=== PATIENT | male | born 1965 | race African-American/Black ===

== ENCOUNTER 2020-07-08 02:06 | Inpatient (IN) ==
[2020-07-08] MEDS ORDERED: FUROSEMIDE 40 MG/4 ML VIAL IV STA (02:23)
[2020-07-08] MEDS ORDERED: ONDANSETRON ODT 4 MG TABLET PO STA (02:23)
[2020-07-08] MEDS ORDERED: hydrALAZINE 20 MG/1 ML VIAL IV STA (02:23)
[2020-07-08] MEDS ORDERED: MORPHINE 4 MG/1 ML VIAL IV STA (02:23)
[2020-07-08] MEDS ORDERED: METHOCARBAMOL 1,000 MG/10 ML VIAL IV STA (02:23)
[2020-07-08] MEDS ORDERED: NITROGLYCERIN 2% OINT 1 INCH/GM PACK TOP STA (02:26)
[2020-07-08 03:01] LABS: Basophils % 0.2 % (0.0-0.8); Eosinophils # 0.2 10*3/uL (0.0-0.87); Hematocrit 39.7 VOL% (42.0-52.0); Hemoglobin 12.2 GM/DL (14.0-18.0); Immature Granulocytes % 0.2 %; Immature Granulocytes Absolute 0.01 #; Lymphocytes # 2.6 10*3/uL (1.4-4.0); Lymphocytes % 39.3 % (21.2-54.2); Mean Corpuscular HGB Conc 30.7 GM/DL (32-36); Mean Corpuscular Volume 92.5 FL (87-102); Mean Platelet Volume 11.6 FL (9.6-12.0); Monocytes % 7.4 % (1.7-12.7); Neutrophils % 49.9 % (38.7-73.9); Platelet Count 248 T/CUMM (130-400); Red Blood Count 4.29 MC/CUMM (3.8-5.5); Red Cell Distribution Width 14.2 % (9.3-17.3); White Blood Count 6.6 T/CUMM (4-12)
[2020-07-08 03:15] LABS: Alanine Aminotransferase 31 U/L (16-61); Albumin 3.9 G/DL (3.4-5.0); Alkaline Phosphatase 86 U/L (45-117); Aspartate Amino Transferase 48 U/L (0-37); Blood Urea Nitrogen 7 MG/DL (7-18); CKMB % 0.5 %; Calcium 8.9 MG/DL (8.5-10.1); Estimated Glom Filtration Rate 101 ML/MIN; Glucose 126 MG/DL (74-106); Osmolality,Calculated 272.8 MOS/KG (273-304); Total Protein 9.5 G/DL (6.4-8.3); Troponin I < 0.015 NG/ML (0.00-0.045)
[2020-07-08 03:19] LABS: Apearance,Urine Slightly Hazy (Clear); Bacteria,Urine Many /HPF (Few); Bilirubin,Urine Negative (Negative); Blood, Urine Small mg/dL (Negative); Glucose,Urine (UA) Negative (Negative); Ketones,Urine Negative (Negative); Mucus,Urine Occasional /LPF (Occasional); Nitrite,Urine Negative (Negative); Protein,Urine 30 MG/DL; RBC,Urine 9 /HPF (0-4); Renal Epithelial Cells,Urine Occasional /HPF (<1); Squamous Epithelial Cell,Urine Occasional /HPF (0-10); Urine Color Yellow (Yellow); Urine Specific Gravity 1.017 (1.001-1.035); WBC,Urine 61 /HPF (0-6)
[2020-07-08] MEDS ORDERED: LEVOFLOXACIN INJ 500 MG in PREMIX 1 EACH IV STA (03:22)
[2020-07-08] MEDS ORDERED: SODIUM CHLORIDE 0.9% 500 ML IV STA (03:22)
[2020-07-08 03:34] LABS: Barbiturates Screen,Urine Negative (Negative); Benzodiazepines Screen,Urine Negative (Negative); Cannabinoid Screen,Urine Negative (Negative); Opiate Screen,Urine Positive (Negative); Phencyclidine Screen,Urine Negative (Negative)
[2020-07-08 03:41] LABS: INR 2.4
[2020-07-08 03:43] LABS: PT Patient Result 24.6 SECS (9.8-11.9)
[2020-07-08] MEDS ORDERED: ACETAMINOPHEN 325 MG TABLET PO PRN (04:05)
[2020-07-08] MEDS ORDERED: ONDANSETRON 4 MG/2 ML VIAL IV PRN (04:05)
[2020-07-08] MEDS ORDERED: DEXTROSE 50% 25 GM/50 ML VIAL IV PRN (04:05)
[2020-07-08] MEDS ORDERED: GLUCAGON 1 MG VIAL IM PRN (04:05)
[2020-07-08] MEDS ORDERED: SILDENAFIL 20 MG TABLET PO PRN (04:12)
[2020-07-08] MEDS: SODIUM CHLORIDE 0.9% 1,000 ML IV SCH ×2 (06:08→17:24)
[2020-07-08] MEDS: GABAPENTIN 300 MG CAPSULE PO SCH ×3 (06:08→21:55)
[2020-07-08] MEDS: PANTOPRAZOLE 40 MG TABLET PO SCH (09:42)
[2020-07-08] MEDS: rOPINIRole 1 MG TABLET PO SCH (09:42)
[2020-07-08] MEDS: MORPHINE 4 MG/1 ML VIAL IV PRN ×3 (09:42→23:58)
[2020-07-08] MEDS: OXYBUTYNIN XL 10 MG TABLET PO SCH (09:43)
[2020-07-08] MEDS: METHOCARBAMOL INJ 1,000 MG in SODIUM CHLORIDE 0.9% 100 ML IV SCH ×2 (11:05→19:39)
[2020-07-08] MEDS ORDERED: ALBUTEROL/IPRATROPIUM 3 ML NEB RESP TX PRN (11:28)
[2020-07-08] MEDS: diphenhydrAMINE CAP 25 MG CAPSULE PO PRN (12:01)
[2020-07-09] MEDS: METHOCARBAMOL INJ 1,000 MG in SODIUM CHLORIDE 0.9% 100 ML IV SCH ×3 (03:38→18:34)
[2020-07-09] MEDS: MORPHINE 4 MG/1 ML VIAL IV PRN ×3 (03:39→20:25)
[2020-07-09] MEDS: LEVOFLOXACIN INJ 500 MG in PREMIX 1 EACH IV SCH (06:34)
[2020-07-09] MEDS: GABAPENTIN 300 MG CAPSULE PO SCH ×3 (06:34→23:45)
[2020-07-09 07:39] LABS: Basophils % 0.2 % (0.0-0.8); Eosinophils # 0.1 10*3/uL (0.0-0.87); Eosinophils % 0.9 % (0.00-10.9); Hematocrit 34.6 VOL% (42.0-52.0); Hemoglobin 10.3 GM/DL (14.0-18.0); Immature Granulocytes % 0.5 %; Immature Granulocytes Absolute 0.03 #; Lymphocytes # 2.6 10*3/uL (1.4-4.0); Lymphocytes % 39.3 % (21.2-54.2); Mean Corpuscular HGB Conc 29.8 GM/DL (32-36); Mean Corpuscular Volume 96.9 FL (87-102); Mean Platelet Volume 10.8 FL (9.6-12.0); Monocytes % 7.1 % (1.7-12.7); Platelet Count 227 T/CUMM (130-400); Red Blood Count 3.57 MC/CUMM (3.8-5.5); Red Cell Distribution Width 14.5 % (9.3-17.3); White Blood Count 6.6 T/CUMM (4-12)
[2020-07-09 07:47] LABS: INR 3.3
[2020-07-09 07:58] LABS: Albumin 3.5 G/DL (3.4-5.0); Bilirubin,Total 0.6 MG/DL (0.2-1.0); Calcium 8.5 MG/DL (8.5-10.1); Total Protein 8.6 G/DL (6.4-8.3)
[2020-07-09 08:42] LABS: PT Patient Result 33.1 SECS (9.8-11.9)
[2020-07-09 08:48] LABS: % Iron Saturation 36.9 % (18-50); Ferritin 449.7 ng/ml (26-388)
[2020-07-09 09:15] LABS: Folate 7.2 NG/ML (5.4-24.0)
[2020-07-09] MEDS: OXYBUTYNIN XL 10 MG TABLET PO SCH (09:16)
[2020-07-09] MEDS: rOPINIRole 1 MG TABLET PO SCH (09:16)
[2020-07-09] MEDS: PANTOPRAZOLE 40 MG TABLET PO SCH (09:16)
[2020-07-09] MEDS: SODIUM CHLORIDE 0.9% 1,000 ML IV SCH ×2 (09:23→19:35)
[2020-07-09] MEDS: hydrALAZINE 20 MG/1 ML VIAL IV PRN (13:15)
[2020-07-10] MEDS: METHOCARBAMOL INJ 1,000 MG in SODIUM CHLORIDE 0.9% 100 ML IV SCH ×3 (03:10→18:47)
[2020-07-10] MEDS: SODIUM CHLORIDE 0.9% 1,000 ML IV SCH ×3 (04:45→16:56)
[2020-07-10 04:58] LABS: Calcium 8.4 MG/DL (8.5-10.1); Osmolality,Calculated 270.8 MOS/KG (273-304)
[2020-07-10] MEDS: MORPHINE 4 MG/1 ML VIAL IV PRN ×4 (04:58→18:45)
[2020-07-10 04:59] LABS: INR 3.5; PT Patient Result 35.6 SECS (9.8-11.9)
[2020-07-10] MEDS: GABAPENTIN 300 MG CAPSULE PO SCH ×4 (05:00→21:00)
[2020-07-10] MEDS: LEVOFLOXACIN INJ 500 MG in PREMIX 1 EACH IV SCH (05:00)
[2020-07-10] MEDS: PANTOPRAZOLE 40 MG TABLET PO SCH (08:40)
[2020-07-10] MEDS: OXYBUTYNIN XL 10 MG TABLET PO SCH (08:40)
[2020-07-10] MEDS: amLODIPine 10 MG TABLET PO SCH (08:47)
[2020-07-10] MEDS: hydrALAZINE 20 MG/1 ML VIAL IV PRN ×2 (15:32→16:51)
[2020-07-10] MEDS: diphenhydrAMINE CAP 25 MG CAPSULE PO PRN (18:50)
[2020-07-10] MEDS ORDERED: rOPINIRole 1 MG TABLET PO SCH (21:00)
[2020-07-11] MEDS: METHOCARBAMOL INJ 1,000 MG in SODIUM CHLORIDE 0.9% 100 ML IV SCH ×2 (02:25→11:18)
[2020-07-11] MEDS: LEVOFLOXACIN INJ 500 MG in PREMIX 1 EACH IV SCH (05:45)
[2020-07-11] MEDS: SODIUM CHLORIDE 0.9% 1,000 ML IV SCH (05:45)
[2020-07-11] MEDS: GABAPENTIN 300 MG CAPSULE PO SCH (05:45)
[2020-07-11 05:52] LABS: INR 2.1; PT Patient Result 21.4 SECS (9.8-11.9)
[2020-07-11 07:31] VITALS: BP 173/99
[2020-07-11] MEDS: MORPHINE 4 MG/1 ML VIAL IV PRN (08:13)
[2020-07-11] MEDS: amLODIPine 10 MG TABLET PO SCH (08:15)
[2020-07-11] MEDS: OXYBUTYNIN XL 10 MG TABLET PO SCH (08:15)
[2020-07-11] MEDS: PANTOPRAZOLE 40 MG TABLET PO SCH (08:16)
[2020-07-11] MEDS ORDERED: LOSARTAN 50 MG TABLET PO SCH (09:00)
[2020-07-11] MEDS ORDERED: lisinopriL 10 MG TABLET PO SCH (09:00)
== END 2020-07-11 11:21 | disposition home or self-care (01) | DRG 683 ==
LOC: N.EDINP 02:06 → N.ED 02:06 → N.3E 04:57
PROVIDERS: ADMIT Internal Medicine; ATTEND Internal Medicine

== ENCOUNTER 2022-09-19 10:23 | Observation (INO) ==
[2022-09-19] MEDS ORDERED: ASPIRIN 325 MG TABLET PO STA (10:38)
[2022-09-19 10:51] LABS: Basophils % 0.3 % (0.0-0.8); Eosinophils # 0.2 10*3/uL (0.0-0.87); Eosinophils % 4.2 % (0.00-10.9); Hematocrit 33.5 VOL% (42.0-52.0); Hemoglobin 10.3 GM/DL (14.0-18.0); Immature Granulocytes % 0.2 %; Immature Granulocytes Absolute 0.01 #; Lymphocytes # 1.4 10*3/uL (1.4-4.0); Mean Corpuscular HGB Conc 30.7 GM/DL (32-36); Mean Platelet Volume 10.6 FL (9.6-12.0); Monocytes # 0.5 10*3/uL (0.11-0.8); Monocytes % 8.2 % (1.7-12.7); Neutrophils % 63.1 % (38.7-73.9); Platelet Count 302 T/CUMM (130-400); Red Blood Count 3.68 MC/CUMM (3.8-5.5); Red Cell Distribution Width 14.7 % (9.3-17.3); White Blood Count 5.8 T/CUMM (4-12)
[2022-09-19 10:56] LABS: INR 1.6
[2022-09-19 11:04] LABS: Albumin 3.4 G/DL (3.4-5.0); Bilirubin,Total 0.4 MG/DL (0.20-1.00); Calcium 8.9 MG/DL (8.5-10.1); Osmolality,Calculated 276.5 MOS/KG (273-304); Total Protein 9.4 G/DL (6.4-8.2)
[2022-09-19] MEDS ORDERED: LEVOFLOXACIN INJ 750 MG/150 ML PREMIX IV STA (12:31)
[2022-09-19 13:10] LABS: Amorphous Crystals,Urine Few /HPF (Few); Bilirubin,Urine Negative (Negative); Blood, Urine Negative (Negative); Glucose,Urine (UA) Negative (Negative); Ketones,Urine Negative (Negative); Nitrite,Urine Positive (Negative); Protein,Urine Negative (Negative); RBC,Urine 1 /HPF (0-4); Urine Appearance Slightly Hazy (Clear); Urine Color Yellow (Yellow); Urine Specific Gravity 1.011 (1.001-1.035); Urine Urobilinogen < 2.0 eU/dL (<2.0)
[2022-09-19 13:27] LABS: Barbiturates Screen,Urine Negative (Negative); Benzodiazepines Screen,Urine Negative (Negative); Cannabinoid Screen,Urine Negative (Negative); Opiate Screen,Urine Negative (Negative); Phencyclidine Screen,Urine Negative (Negative)
[2022-09-19] MEDS ORDERED: ONDANSETRON 4 MG/2 ML VIAL IV PRN (13:32)
[2022-09-19] MEDS ORDERED: DOCUSATE SODIUM 100 MG CAPSULE PO PRN (13:32)
[2022-09-19] MEDS ORDERED: ACETAMINOPHEN 325 MG TABLET PO PRN (13:32)
[2022-09-19] MEDS ORDERED: ALBUTEROL 2.5 MG/3 ML NEB RESP TX PRN (13:32)
[2022-09-19] MEDS ORDERED: methylPREDNISolone SOD SUC 40 MG/1 ML VIAL IV STA (13:46)
[2022-09-19] MEDS ORDERED: FUROSEMIDE 40 MG/4 ML VIAL IV ONE (13:49)
[2022-09-19] MEDS ORDERED: hydrALAZINE 20 MG/1 ML VIAL IV PRN (13:52)
[2022-09-19] MEDS: GABAPENTIN 300 MG CAPSULE PO SCH ×2 (14:40→21:05)
[2022-09-19] MEDS: BACLOFEN 10 MG TABLET PO SCH ×2 (14:40→21:05)
[2022-09-19] MEDS ORDERED: WARFARIN 2.5 MG TABLET PO SCH (18:00)
[2022-09-19] MEDS: ALBUTEROL/IPRATROPIUM 3 ML NEB RESP TX SCH (18:50)
[2022-09-19] MEDS ORDERED: rOPINIRole 1 MG TABLET PO SCH (21:00)
[2022-09-20] MEDS: methylPREDNISolone SOD SUC 40 MG/1 ML VIAL IV SCH ×2 (01:57→14:26)
[2022-09-20 05:10] LABS: Hematocrit 32.8 VOL% (42.0-52.0); Immature Granulocytes % 0.7 %; Immature Granulocytes Absolute 0.05 #; Lymphocytes % 12.9 % (21.2-54.2); Mean Corpuscular HGB Conc 30.5 GM/DL (32-36); Mean Corpuscular Volume 92.1 FL (87-102); Mean Platelet Volume 11.1 FL (9.6-12.0); Monocytes # 0.2 10*3/uL (0.11-0.8); Monocytes % 2.3 % (1.7-12.7); Neutrophils % 84.1 % (38.7-73.9); Platelet Count 303 T/CUMM (130-400); Red Blood Count 3.56 MC/CUMM (3.8-5.5); Red Cell Distribution Width 14.6 % (9.3-17.3); White Blood Count 7.4 T/CUMM (4-12)
[2022-09-20] MEDS: GABAPENTIN 300 MG CAPSULE PO SCH ×2 (05:18→14:29)
[2022-09-20] MEDS: BACLOFEN 10 MG TABLET PO SCH ×2 (05:18→14:28)
[2022-09-20 05:21] LABS: INR 1.5; PT Patient Result 16.6 SECS (10.1-12.1)
[2022-09-20 05:36] LABS: Albumin 3.4 G/DL (3.4-5.0); Bilirubin,Total 0.4 MG/DL (0.20-1.00); Calcium 9.1 MG/DL (8.5-10.1); Osmolality,Calculated 278.7 MOS/KG (273-304); Total Protein 9.2 G/DL (6.4-8.2)
[2022-09-20] MEDS: ALBUTEROL/IPRATROPIUM 3 ML NEB RESP TX SCH ×2 (06:50)
[2022-09-20 08:34] VITALS: BP 147/83
[2022-09-20] MEDS ORDERED: CHOLECALCIFEROL 1,000 UNIT TABLET PO SCH (09:00)
[2022-09-20] MEDS ORDERED: OXYBUTYNIN XL 10 MG TABLET PO SCH (09:00)
[2022-09-20] MEDS ORDERED: VALSARTAN 160 MG TABLET PO SCH (09:00)
[2022-09-20] MEDS ORDERED: PANTOPRAZOLE 40 MG TABLET PO SCH (09:00)
[2022-09-20] MEDS ORDERED: WARFARIN 5 MG TABLET PO SCH (18:00)
== END 2022-09-20 14:42 | disposition home or self-care (01) ==
LOC: N.ED 10:23 → N.EDINP 10:23 → SUATTDRO 13:01 → N.5E 15:42
PROVIDERS: ADMIT Internal Medicine; ATTEND Internal Medicine